=== PATIENT | female | born 1970 | race Caucasian/White ===

== ENCOUNTER 2016-03-19 20:35 | Emergency (ER) | payer OTHER ==
[~2016-03-19] VITALS: Ht 160 cm; Wt 77.6 kg
[2016-03-19 20:51] VITALS: BP 156/83
[2016-03-19] MEDS ORDERED: NAPROXEN 500 MG TABLET PO ONE (22:00)
[2016-03-19] MEDS ORDERED: TRAM-29 PO (22:11)
--- NOTE | 2016-03-19 22:11 | PHYS DOC ---
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 Review of Systems Review of Systems Constitutional: Denies fever or chills [] Musculoskeletal: Left hand contusion Integument: Denies rash or skin lesions [] Neurologic: Denies headache, focal weakness or sensory changes [] Endocrine: Denies polyuria or polydipsia [] Current Medications Current Medications Current Medications Medications (Trade) Dose Ordered Sig/[place] Start Time Stop Time Status Last Admin Dose Admin Naproxen (Naprosyn) 500 mg 1X ONCE 03/19/16 22:00 03/19/16 22:01 DC Allergies Allergies Allergies Coded Allergies Type Severity Reaction Last Updated Verified chlorpromazine Allergy Severe SEIZURE 03/19/16 Yes prochlorperazine Allergy Severe Unknown 03/19/16 Yes promethazine Allergy Severe Unknown 03/19/16 Yes Physical Exam Physical Exam Constitutional: Well developed, well nourished, no acute distress, non-toxic appearance. [] Skin: Warm, dry, no erythema, no rash. [] Back: No tenderness, no CVA tenderness. [] Extremities: Left hand with no obvious deformity, no obvious bruising. Tenderness on palpation of the left pinky and ring finger knuckles. Full range of motion to the left hand including flexion and extension of the fingers. +2 left radial pulse. Adequate ulna radial and medial sensation to the left hand. Cap refill less than 2 seconds and left fingers. Sensation intact. Neurologic: Alert and oriented X 3, normal motor function, normal sensory function, no focal deficits noted. [] Psychologic: Affect normal, judgement normal, mood normal. [] Current Patient Data Vital Signs Vital Signs Date Time Temp Pulse Resp B/P Pulse Ox O2 Delivery O2 Flow Rate FiO2 03/19/16 20:51 98.3 95 18 98 Room Air 98.3 EKG EKG [] Radiology/Procedures Radiology/Procedures [] Course & Med Decision Making Course & Med Decision Making Pertinent Labs and Imaging studies reviewed. (See chart for details) Patient is in the ED with left hand contusion after injury at work. X-ray interpreted by Dr. Hu is negative for any acute findings.Adrian wrap applied to the left hand by the Ed RN, neurovascular exam done by me is normal with cap refill <2 seconds. Ice elevation encouraged. Fu with Ortho in one week. Dragon Disclaimer Dragon Disclaimer This electronic medical record was generated, in whole or in part, using a voice recognition dictation system. Departure Departure Impression: Primary Impression: Contusion of left hand Disposition: HOME, SELF-CARE Condition: STABLE Referrals: AKIN CHOUDHURY (PCP) ANGEL OROZCO MD Please follow-up with the provided orthopedic doctor in one week if pain continues Patient Instructions: Contusion Additional Instructions: You were seen for left hand contusion. Wear the Adrian wrap as needed, ice and elevate the extremity. Take the prescribed medicines as needed. Follow-up with the provided orthopedic doctor your own doctor in one week if pain continues. Scripts Tramadol Hcl (Ultram)50 Mg Tablet1 Tab PO Q6HRS #30 TAB Prov:BETTYNATHALYATTILA LAMBERT 03/19/16 Problem Qualifiers Primary Impression: Contusion of left hand Encounter type: initial encounter Qualified Code: S60.222A - Contusion of left hand, initial encounter RAJINDERATTILA PETRA Mar 19, 2016 22:11
--- NOTE | 2016-03-20 09:30 | RAD ---
Indication pain. Injury. Pain particularly in the fourth and fifth metacarpal area. AP oblique and lateral views of the left hand were obtained. No bony abnormality is seen
== END 2016-03-19 22:19 | disposition home or self-care (01) ==
LOC: ER 20:35
DX: S60.222A Contusion of left hand, initial encounter (principal); Z86.73 Personal history of transient ischemic attack (TIA), and cerebral infarction without residual deficits; Z88.8 Allergy status to other drugs, medicaments and biological substances; W23.0XXA Caught, crushed, jammed, or pinched between moving objects, initial encounter; Y93.89 Activity, other specified; Y92.89 Other specified places as the place of occurrence of the external cause; Y99.8 Other external cause status
CPT/HCPCS: 73130; 99284

== ENCOUNTER 2016-06-15 20:28 | Emergency (ER) | payer OTHER ==
[~2016-06-15] VITALS: Ht 160 cm; Wt 77.1 kg
[~2016-06-15 20:28] MED LIST: TRAM-29 PO
--- NOTE | 2016-06-15 20:41 | PHYS DOC ---
Past Medical History Past Medical History: TIA, Other Additional Past Medical Histor: SKIN CA Past Surgical History: Other Additional Past Surgical Histo: SKIN CANCER REMOVAL Alcohol Use: Rarely Drug Use: None Adult General Chief Complaint Chief Complaint: SHOULDER INJURY HPI HPI Patient is a 46 year old female presents to the emergency department stating that she was at work at [employer] and boxes that she felt a pull in her right shoulder. She states that she has had decreased range of motion since the incident. She states that this happened between 1 and 2:00 this afternoon. Patient states that she is right-hand dominant. She has not taken anything for pain or discomfort. She denies any numbness or tingling down to her lower extremity. 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 Patient with equal sensation to bilateral arms. Review of Systems Review of Systems Constitutional: Denies fever or chills [] Eyes: Denies change in visual acuity, redness, or eye pain [] HENT: Denies nasal congestion or sore throat [] Respiratory: Denies cough or shortness of breath [] Cardiovascular: No additional information not addressed in HPI [] GI: Denies abdominal pain, nausea, vomiting, bloody stools or diarrhea [] : Denies dysuria or hematuria [] Musculoskeletal: Denies back pain. C/o right shoulder pain Integument: Denies rash or skin lesions [] Neurologic: Denies headache, focal weakness or sensory changes [] Current Medications Current Medications Current Medications Medications (Trade) Dose Ordered Sig/[facility] Start Time Stop Time Status Last Admin Dose Admin Cyclobenzaprine HCl (Flexeril) 10 mg 1X ONCE 06/15/16 21:00 06/15/16 21:01 DC 06/15/16 21:12 10 MG Ibuprofen (Motrin) 800 mg 1X ONCE 06/15/16 21:00 06/15/16 21:01 DC 06/15/16 21:12 800 MG Allergies Allergies Allergies Coded Allergies Type Severity Reaction Last Updated Verified chlorpromazine Allergy Severe SEIZURE 03/19/16 Yes prochlorperazine Allergy Severe Unknown 03/19/16 Yes promethazine Allergy Severe Unknown 03/19/16 Yes Physical Exam Physical Exam Constitutional: Well developed, well nourished, no acute distress, non-toxic appearance. [] HENT: Normocephalic, atraumatic, bilateral external ears normal, oropharynx moist, no oral exudates, nose normal. [] Eyes: PERRLA, EOMI, conjunctiva normal, no discharge. [] Neck: Normal range of motion, no tenderness, supple, no stridor. [] Cardiovascular:Heart rate regular rhythm, no murmur [] Lungs & Thorax: Bilateral breath sounds clear to auscultation []] Skin: Warm, dry, no erythema, no rash. [] Back: No tenderness Extremities: Right shoulder tenderness, no cyanosis, no clubbing, ROM intact, no edema. Patient with decreased range of motion with the right shoulder. Patient was noted to have right database management specialist slightly less in the left. Patient with decreased range of motion to the right shoulder. Her tenderness noted over the clavicle area. Neurologic: Alert and oriented X 3, normal motor function, normal sensory function, no focal deficits noted. [] Psychologic: Affect normal, judgement normal, mood normal. [] Current Patient Data Vital Signs Vital Signs Date Time Temp Pulse Resp B/P Pulse Ox O2 Delivery O2 Flow Rate FiO2 06/15/16 20:46 97.8 80 18 99 Room Air 97.8 EKG EKG [] Radiology/Procedures Radiology/Procedures [] Course & Med Decision Making Course & Med Decision Making Pertinent Labs and Imaging studies reviewed. (See chart for details) X-rays were negative for any bony abnormalities per Dr. Lundy. Patient will be placed in a sling. Recommended ibuprofen 800 mg every 8 hours with food stop taking few develop an upset stomach. Also recommended ice packs on 20 minutes off 20 minutes several times a day. Also recommended patient to take her arm out of the sling approximately 4 times a day and do shoulder exercises to prevent frozen shoulder. Patient will be provided with orthopedic name and number to follow up with. Signs symptoms to return back to emergency department provided. Patient agrees with discharge instructions treatment regimens and follow-up recommendations. [] Dragon Disclaimer Dragon Disclaimer This electronic medical record was generated, in whole or in part, using a voice recognition dictation system. Departure Departure Impression: Primary Impression: Right shoulder pain Disposition: HOME, SELF-CARE Condition: STABLE Referrals: AKIN CHOUDHURY (PCP) BRIAN RUCKER MD Patient Instructions: Arm Sling Use-Brief, Shoulder Pain, [id number] Additional Instructions: Your x-rays were negative for any bone abnormality. Ibuprofen 800 mg every 8 hours with food stop taking few develop upset stomach. Ice packs on 20 minutes off 20 minutes several times a day. Wear the sling whenever you are up ambulating. Take the arm out of the sling 4 times a day and do wall exercises as you were shown here in the emergency department. Follow-up with orthopedic in the next week. Return back to emergency department for signs and symptoms of become worse. You may return to work with left-handed work only. No lifting anything with the right arm. GRICELDA COON SURGERY NURSE Jun 15, 2016 20:41
[2016-06-15 20:46] VITALS: BP 154/83
[2016-06-15] MEDS ORDERED: CYCLOBENZAPRINE 10 MG TABLET. PO ONE (21:00)
[2016-06-15] MEDS ORDERED: IBUPROFEN 800 MG TABLET. PO ONE (21:00)
--- NOTE | 2016-06-16 08:20 | RAD ---
SHOULDER 2+V RIGHT Clinical Indication: pain and injury Comparison: None. Technique: Internal and external rotational and Y scapular views of the right shoulder are obtained. Findings: No acute fracture or dislocation is seen. Glenohumeral and acromio clavicular joints are maintained. Visualized ribs are intact. Visualized lung is clear. Overlying soft tissues demonstrate no acute finding. IMPRESSION: No acute osseous injury.
== END 2016-06-15 21:40 | disposition home or self-care (01) ==
LOC: ER 20:28
DX: M25.511 Pain in right shoulder (principal); Z88.8 Allergy status to other drugs, medicaments and biological substances; Z86.73 Personal history of transient ischemic attack (TIA), and cerebral infarction without residual deficits; X58.XXXA Exposure to other specified factors, initial encounter; Y93.89 Activity, other specified; Y92.69 Other specified industrial and construction area as the place of occurrence of the external cause; Y99.0 Civilian activity done for income or pay
CPT/HCPCS: 73030; 99284

== ENCOUNTER 2016-10-31 18:14 | Emergency (ER) | payer BC, OTHER ==
[~2016-10-31] VITALS: Ht 160 cm; Wt 76.2 kg
[~2016-10-31 18:14] MED LIST changes: -TRAM-29 PO; +TRAM-48 PO
--- NOTE | 2016-10-31 18:41 | EKG ---
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
[2016-10-31] MEDS ORDERED: CYCLOBENZAPRINE 10 MG TABLET. PO ONE (18:45)
[2016-10-31] MEDS ORDERED: HYDROcodone/APAP 5/325MG 1 TAB TABLET PO ONE (18:45)
[2016-10-31] MEDS ORDERED: HYDR-971 PO (19:19)
[2016-10-31] MEDS ORDERED: CYCL5TAB PO (19:19)
--- NOTE | 2016-10-31 19:19 | PHYS DOC ---
Past Medical History Past Medical History: Cancer, TIA, Other Additional Past Medical Histor: SKIN CA Past Surgical History: Cholecystectomy, , Other Additional Past Surgical Histo: SKIN CANCER REMOVAL, TMJ, L ARM Alcohol Use: Rarely Drug Use: None Adult General Chief Complaint Chief Complaint: SHORTNESS OF BREATH HPI HPI Patient is a 46 year old female who presents with right sided back pain. The patient states she played frisbee golf this afternoon & had onset of right sided upper back pain. She doesn't remember a specific injury. She reports pain worse with deep breathing. Denies cough, chest pain, nausea, vomiting, diaphoresis, extremity numbness/weakness. Didn't take any meds at home for this. She denies diabetes, hypertension, CAD. She is a current every day smoker. Review of Systems Review of Systems Constitutional: Denies fever or chills Eyes: Denies change in visual acuity HENT: Denies nasal congestion or sore throat Respiratory: Denies cough or shortness of breath Cardiovascular: Denies chest pain or edema GI: Denies abdominal pain, nausea, vomiting Musculoskeletal: Reports back pain. Integument: Denies rash Neurologic: Denies headache, focal weakness or sensory changes Current Medications Current Medications Current Medications Medications (Trade) Dose Ordered Sig/[place] Start Time Stop Time Status Last Admin Dose Admin Acetaminophen/ Hydrocodone Bitart (Lortab 5/325) 2 tab 1X ONCE 10/31/16 18:45 10/31/16 18:46 DC 10/31/16 18:49 2 TAB Cyclobenzaprine HCl (Flexeril) 10 mg 1X ONCE 10/31/16 18:45 10/31/16 18:46 DC 10/31/16 18:49 10 MG Allergies Allergies Allergies Coded Allergies Type Severity Reaction Last Updated Verified chlorpromazine Allergy Severe SEIZURE 03/19/16 Yes prochlorperazine Allergy Severe Unknown 03/19/16 Yes promethazine Allergy Severe Unknown 03/19/16 Yes Physical Exam Physical Exam Constitutional: Well developed, well nourished, no acute distress, non-toxic appearance. HENT: Normocephalic, atraumatic, bilateral external ears normal, oropharynx moist, nose normal. Eyes: conjunctiva normal, no discharge. Neck: supple, no stridor. Cardiovascular: RRR, no murmurs, no edema. Lungs & Thorax: LCTAB, no wheezing, no respiratory distress. Abdomen: soft, nontender, nondistended. Skin: Warm, dry, no erythema, no rash. Back: reproducible tenderness with palpation over trapezius on the right, no spinal tenderness. Extremities: No tenderness, no edema. no calf tenderness or swelling. Neurologic: Alert and oriented X 3, symmetric strength/sensation to upper & lower extremities, no focal deficits noted. Psychologic: Affect normal, judgement normal, mood normal. Current Patient Data Vital Signs Vital Signs Date Time Temp Pulse Resp B/P (MAP) Pulse Ox O2 Delivery O2 Flow Rate FiO2 10/31/16 19:30 75 20 171/81 (111) 97 Room Air 10/31/16 18:30 98.1 98.1 Lab Values Laboratory Tests Test 10/31/16 18:37 POC Hemoglobin 14.6 g/dL (12-15) POC Hematocrit 43 % (36-40) H POC Sodium 139 mmol/L (135-145) POC Potassium 4.0 mmol/L (3.5-5.0) POC Chloride 105 mmol/L (98-110) POC Total CO2 21 mmol/L (23-32) L Anion Gap 18 mmol/L (6-14) H POC Blood Urea Nitrogen 10 mg/dL (8-26) POC Creatinine 0.7 mg/dL (0.5-1.4) Glucose Level 97 mg/dL (70-99) POC Ionized Calcium (Orin) 1.14 mmol/L (1.13-1.32) POC Troponin I 0.00 ng/ml (<0.08) Laboratory Tests 10/31/16 18:37 EKG EKG interpreted by me: NSR rate 79, no acute ST/T wave changes, normal intervals, no ectopy.[] Radiology/Procedures Radiology/Procedures chest x ray 2 views: interpreted by me: no cardiomegaly, no infiltrate, no pneumothorax, no obvious rib fracture.[] Course & Med Decision Making Course & Med Decision Making Pertinent Labs and Imaging studies reviewed. (See chart for details) The patient presents with back pain. No specific history of injury & she plays frisbee golf several times per week, so obtained labs, EKG, CXR to rule out other cause of her pain. PERC is 0. She has unremarkable workup here & feels better after flexeril & norco. Recommend rest, scheduled ibuprofen, ice/heat, gave prescriptions for norco & flexeril. No drinking alcohol or driving while taking meds. Follow up with PCP in 2-3 days if not improving. Come back for severe chest pain or shortness of breath, or any otherwise worsening condition. Discharged home in stable condition. [] Dragon Disclaimer Dragon Disclaimer This electronic medical record was generated, in whole or in part, using a voice recognition dictation system. Departure Departure Impression: Primary Impression: Muscle strain of right scapular region Disposition: 01 HOME, SELF-CARE Condition: STABLE Referrals: AKIN CHOUDHURY (PCP) Patient Instructions: Muscle Strain, [id number] Additional Instructions: You were seen in the emergency department today for back pain. Tests here did not show a serious cause of symptoms. Please rest, apply ice or heat, take ibuprofen 600 mg every 8 hours, use flexeril for muscle spasm & norco for severe pain. No drinking alcohol or driving while taking this medication. Follow up with primary care doctor if not improving in 2-3 days. Come back for severe shortness of breath or chest pain, numbness or weakness in arms or legs, any otherwise worsening condition. Scripts Hydrocodone/Apap 5-325 (NORCO 5-325 TABLET) 1 Each Tablet 1 TAB PO PRN Q6HRS Y for PAIN, #10 TAB 0 Refills Prov: DREW LIEBERMAN MD 10/31/16 Cyclobenzaprine Hcl (CYCLOBENZAPRINE HCL) 5 Mg Tablet 1 TAB PO TID Y for MUSCLE SPASMS, #10 TAB Prov: DREW LIEBERMAN MD 10/31/16 Problem Qualifiers Primary Impression: Muscle strain of right scapular region Encounter type: initial encounter Qualified Codes: S46.911A - Strain of unspecified muscle, fascia and tendon at shoulder and upper arm level, right arm , initial encounter DREW LIEBERMAN MD Oct 31, 2016 19:19
[2016-10-31 19:30] VITALS: BP 171/81
--- NOTE | 2016-11-01 08:03 | RAD ---
Exam performed: 2 views of the chest. Indication: shortness of air today Date of Service:10/31/2016 8:29 PM . Comparison : 10/17/09 Findings: PA and lateral radiographs of the chest reveal a normal cardiomediastinal contour. The lungs are clear. No pleural fluid is seen. The visualized osseous structures are unremarkable. Impression: Radiographically normal chest.
== END 2016-10-31 19:30 | disposition home or self-care (01) ==
LOC: ER 18:14
DX: S46.811A Strain of other muscles, fascia and tendons at shoulder and upper arm level, right arm, initial encounter (principal); Z88.8 Allergy status to other drugs, medicaments and biological substances; Z86.73 Personal history of transient ischemic attack (TIA), and cerebral infarction without residual deficits; X58.XXXA Exposure to other specified factors, initial encounter; Y93.89 Activity, other specified; Y92.89 Other specified places as the place of occurrence of the external cause; Y99.8 Other external cause status
CPT/HCPCS: 36415; 71020; 80047; 84484; 93005; 99284-25

== ENCOUNTER 2016-11-27 17:43 | Emergency (ER) | payer BC ==
[~2016-11-27] VITALS: Ht 160 cm; Wt 77.1 kg
[~2016-11-27 17:43] MED LIST changes: +CYCL5TAB PO; +HYDR-971 PO
[2016-11-27] MEDS ORDERED: ONDANSETRON PF 4 MG/2 ML VIAL. IV ONE (18:30)
[2016-11-27] MEDS ORDERED: diphenhydrAMINE 50 MG/ML VIAL IVP ONE (18:30)
[2016-11-27] MEDS ORDERED: HYDROmorphone 2 MG/ML VIAL IV ONE (18:30)
[2016-11-27 18:34] LABS: BASO # 0.1 x10^3/uL (0.0-0.2); BASO % 1 % (0-3); EOS % 3 % (0-3); HEMOGLOBIN 15.4 g/dL (12.0-15.5); LYMPH # 3.2 x10^3/uL (1.0-4.8); LYMPH % 41 % (24-48); MEAN CORPUSCULAR HEMOGLOBIN 31 pg (25-35); MEAN CORPUSCULAR HGB CONC 34 g/dL (31-37); MEAN CORPUSCULAR VOLUME 94 fL (79-100); MONO % 6 % (0-9); NEUT % 49 % (31-73); PLATELET COUNT 186 x10^3/uL (140-400); RED BLOOD COUNT 4.91 x10^6/uL (3.50-5.40); RED CELL DISTRIBUTION WIDTH 13.3 % (11.5-14.5); WHITE BLOOD COUNT 7.8 x10^3/uL (4.0-11.0)
[2016-11-27 18:53] LABS: CREATININE 0.8 mg/dL (0.6-1.0); GFR 76.6; POTASSIUM 4.5 mmol/L (3.5-5.1)
[2016-11-27 18:58] LABS: ALBUMIN 3.9 g/dL (3.4-5.0); ALBUMIN/GLOBULIN RATIO 1.2 (1.0-1.7); TOTAL BILIRUBIN 0.1 mg/dL (0.2-1.0); TOTAL PROTEIN 7.1 g/dL (6.4-8.2)
[2016-11-27 19:59] LABS: BILIRUBIN,URINE NEGATIVE (NEG); GLUCOSE,URINE NEGATIVE (NEG); NITRITE,URINE NEGATIVE (NEG); PROTEIN,URINE NEGATIVE (NEG-TRACE); UROBILINOGEN,URINE 0.2 mg/dL (0.2 mg/dL)
[2016-11-27 20:04] LABS: BACTERIA,URINE FEW /HPF (0-FEW); RBC,URINE 0 /HPF (0-2); SQUAMOUS EPITHELIAL CELL,UR MOD /LPF; WBC,URINE 0 /HPF (0-4)
[2016-11-27] MEDS ORDERED: amLODIPine BESYLATE 5 MG TABLET PO ONE (20:15)
[2016-11-27] MEDS ORDERED: TRAM-48 PO (20:48)
[2016-11-27] MEDS ORDERED: AMLO10TA4 PO (20:48)
--- NOTE | 2016-11-27 20:48 | PHYS DOC ---
Past Medical History Past Medical History: Cancer, TIA, Other Additional Past Medical Histor: SKIN CA Past Surgical History: Cholecystectomy, , Other Additional Past Surgical Histo: SKIN CANCER REMOVAL, TMJ, L ARM Alcohol Use: Rarely Drug Use: None Adult General Chief Complaint Chief Complaint: HYPERTENSION HPI HPI Patient is a 46 year old female with history significant for skin cancer and no other medical problems presents to the ER today secondary to headache and hypertension. Patient reports she's had headaches in the past however they've avoided related with her blood pressure being elevated. Patient reports that she has been seen her primary care physician over the last couple weeks secondary to her elevated blood pressure and headache. Patient reports that she was instructed to get a blood pressure monitor and keep a diary of her blood pressure. Patient reports that her blood pressure been elevated for the last 2 weeks however tonight she had a diastolic of 149 and a systolic of 174. Patient reports that she just recently saw her doctor and she has diastolic blood pressure of 110 but has not been started on any antihypertensives because it was believed that her elevated blood pressure was secondary to her headache. Patient reports that throughout the course of the last couple weeks when she's had her blood pressure monitored at home her blood pressure has been persistently elevated even when her headache had improved. Patient reports today her headache a bad again so she called her primary care doctor and he instructed her to come to the ER for evaluation of her headache and her elevated blood pressure. Patient has no confirmed diagnosis of hypertension, diabetes liver lung or kidney problems. Patient has had a cholecystectomy in 2 C -sections in the past. Patient reports she does smoke and does not drink or do drugs. Patient portion allergic to Compazine Phenergan and Thorazine. Patient denies any double vision blurred vision weakness or upper or lower extremities, chest pain shortness of breath, slurring her speech, lower extremity edema, abdominal pain,. Patient denies any fevers shakes chills. Patient has any nuchal rigidity. Patient denies any head trauma. Patient reports that she was here approximately 1-2 months ago and had a normal CT scan at that time. Review of systems Constitutional: Denies fever or chills Eyes: Denies change in visual acuity, redness, or eye pain All other review systems are negative except as documented in the history of present illness portion. Physical exam Constitutional: Well developed, well nourished, no acute distress, non-toxic appearance. HENT: Normocephalic, atraumatic, bilateral external ears normal, oropharynx moist, no oral exudates, nose normal. Normal funduscopic exam. Eyes: conjunctiva normal, no discharge. Neck: Normal range of motion, no tenderness, supple, no stridor. Cardiovascular:Heart rate regular rhythm, Lungs & Thorax: Bilateral breath sounds clear to auscultation Abdomen: Bowel sounds normal, soft, no tenderness, no masses, no pulsatile masses. Skin: Warm, dry, Back: No tenderness, Extremities: No tenderness, no cyanosis, Neurologic: Alert and oriented X 3, normal motor function, normal sensory function, no focal deficits noted. Psychologic: Affect normal, judgement normal, mood normal. This is a 46-year-old female who presents to the ER today secondary to headache and hypertension. While in the ER the patient was treated for her migraine to see if her improved headache with lower blood pressure. Patient was given a dose of Benadryl and Dilaudid as well as IV fluids upper with her headache. Patient had basic labs drawn which were all within normal limits. Patient was reevaluated after headache improved and her blood pressure was still elevated. After long discussion with the patient the decision was made to initiate her on antihypertensive medication until she is able see her primary care physician in one to 2 weeks which is ready scheduled. Patient be given a dose of Norvasc 10 mg by mouth here and will be discharged home with a prescription for the same but with strict instructions to follow-up within 1-2 weeks for that her blood pressure to be reevaluated. Patient was instructed to return the ER if her headache worsens or if she has any further problems her blood pressure management. Patient was instructed to contact her primary care physician for blood pressure is elevated and she has no significant other symptoms that are concerning. Patient does not present with any signs of end organ damage. Patient does not present with any evidence of acute intracranial pathology. Patient be discharged home with Ultram and Norvasc. Current Medications Current Medications Current Medications Medications (Trade) Dose Ordered Sig/[place] Start Time Stop Time Status Last Admin Dose Admin Amlodipine Besylate (Norvasc) 10 mg 1X ONCE 11/27/16 20:15 11/27/16 20:17 DC 11/27/16 20:25 10 MG Diphenhydramine HCl (Benadryl) 25 mg 1X ONCE 11/27/16 18:30 11/27/16 18:31 DC 11/27/16 18:50 25 MG Hydromorphone HCl (Dilaudid) 1 mg 1X ONCE 11/27/16 18:30 11/27/16 18:31 DC 11/27/16 18:50 1 MG Ondansetron HCl (Zofran) 4 mg 1X ONCE 11/27/16 18:30 11/27/16 18:31 DC 11/27/16 18:49 4 MG Allergies Allergies Allergies Coded Allergies Type Severity Reaction Last Updated Verified chlorpromazine Allergy Severe SEIZURE 03/19/16 Yes prochlorperazine Allergy Severe Unknown 03/19/16 Yes promethazine Allergy Severe Unknown 03/19/16 Yes Physical Exam Physical Exam Constitutional: Well developed, well nourished, no acute distress, non-toxic appearance. [] HENT: Normocephalic, atraumatic, bilateral external ears normal, oropharynx moist, no oral exudates, nose normal. [] Eyes: PERRLA, EOMI, conjunctiva normal, no discharge. [] Neck: Normal range of motion, no tenderness, supple, no stridor. [] Cardiovascular:Heart rate regular rhythm, no murmur [] Lungs & Thorax: Bilateral breath sounds clear to auscultation [] Abdomen: Bowel sounds normal, soft, no tenderness, no masses, no pulsatile masses. [] Skin: Warm, dry, no erythema, no rash. [] Back: No tenderness, no CVA tenderness. [] Extremities: No tenderness, no cyanosis, no clubbing, ROM intact, no edema. [] Neurologic: Alert and oriented X 3, normal motor function, normal sensory function, no focal deficits noted. [] Psychologic: Affect normal, judgement normal, mood normal. [] Current Patient Data Vital Signs Vital Signs Date Time Temp Pulse Resp B/P (MAP) Pulse Ox O2 Delivery O2 Flow Rate FiO2 11/27/16 20:25 78 161/83 11/27/16 19:54 16 98 Room Air 11/27/16 17:56 98.2 98.2 Lab Values Laboratory Tests Test 11/27/16 17:56 11/27/16 19:50 White Blood Count 7.8 x10^3/uL (4.0-11.0) Red Blood Count 4.91 x10^6/uL (3.50-5.40) Hemoglobin 15.4 g/dL (12.0-15.5) Hematocrit 46.0 % (36.0-47.0) Mean Corpuscular Volume 94 fL (79-100) Mean Corpuscular Hemoglobin 31 pg (25-35) Mean Corpuscular Hemoglobin Concent 34 g/dL (31-37) Red Cell Distribution Width 13.3 % (11.5-14.5) Platelet Count 186 x10^3/uL (140-400) Neutrophils (%) (Auto) 49 % (31-73) Lymphocytes (%) (Auto) 41 % (24-48) Monocytes (%) (Auto) 6 % (0-9) Eosinophils (%) (Auto) 3 % (0-3) Basophils (%) (Auto) 1 % (0-3) Neutrophils # (Auto) 3.8 x10^3uL (1.8-7.7) Lymphocytes # (Auto) 3.2 x10^3/uL (1.0-4.8) Monocytes # (Auto) 0.5 x10^3/uL (0.0-1.1) Eosinophils # (Auto) 0.2 x10^3/uL (0.0-0.7) Basophils # (Auto) 0.1 x10^3/uL (0.0-0.2) Sodium Level 141 mmol/L (136-145) Potassium Level 4.5 mmol/L (3.5-5.1) Chloride Level 104 mmol/L (98-107) Carbon Dioxide Level 29 mmol/L (21-32) Anion Gap 8 (6-14) Blood Urea Nitrogen 11 mg/dL (7-20) Creatinine 0.8 mg/dL (0.6-1.0) Estimated GFR (Cockcroft-Gault) 76.6 BUN/Creatinine Ratio 14 (6-20) Glucose Level 92 mg/dL (70-99) Calcium Level 9.0 mg/dL (8.5-10.1) Total Bilirubin 0.1 mg/dL (0.2-1.0) L Aspartate Amino Transferase (AST) 19 U/L (15-37) Alanine Aminotransferase (ALT) 34 U/L (14-59) Alkaline Phosphatase 106 U/L (46-116) Troponin I Quantitative < 0.017 ng/mL (0.000-0.055) Total Protein 7.1 g/dL (6.4-8.2) Albumin 3.9 g/dL (3.4-5.0) Albumin/Globulin Ratio 1.2 (1.0-1.7) Urine Collection Type Unknown Urine Color Yellow Urine Clarity Cloudy Urine pH 7.0 Urine Specific [place] <=1.005 Urine Protein Negative mg/dL (NEG-TRACE) Urine Glucose (UA) Negative mg/dL (NEG) Urine Ketones (Stick) Negative mg/dL (NEG) Urine Blood Negative (NEG) Urine Nitrite Negative (NEG) Urine Bilirubin Negative (NEG) Urine Urobilinogen Dipstick 0.2 mg/dL (0.2 mg/dL) Urine Leukocyte Esterase Negative (NEG) Urine RBC 0 /HPF (0-2) Urine WBC 0 /HPF (0-4) Urine Squamous Epithelial Cells Mod /LPF Urine Bacteria Few /HPF (0-FEW) Laboratory Tests 11/27/16 17:56 Laboratory Tests 11/27/16 17:56 EKG EKG [] Radiology/Procedures Radiology/Procedures [] Course & Med Decision Making Course & Med Decision Making Pertinent Labs and Imaging studies reviewed. (See chart for details) [] Dragon Disclaimer Dragon Disclaimer This electronic medical record was generated, in whole or in part, using a voice recognition dictation system. Departure Departure Impression: Primary Impression: Headache Additional Impression: Hypertension Disposition: 01 HOME, SELF-CARE Condition: IMPROVED Referrals: AKIN CHOUDHURY PER DIEM CLERK (PCP) Patient Instructions: General Headache Without Cause, Hypertension Scripts Tramadol Hcl (ULTRAM) 50 Mg Tablet 1 TAB PO Q6HRS, #14 TAB Prov: SUSY SCHULZ MD 11/27/16 Amlodipine Besylate (NORVASC) 10 Mg Tablet 10 MG PO DAILY, #14 TAB Prov: SUSY SCHULZ MD 11/27/16 Problem Qualifiers SUSY SCHULZ MD Nov 27, 2016 20:48
[2016-11-27 20:54] VITALS: BP 142/76
--- NOTE | 2016-11-28 07:40 | RAD ---
EXAM: Chest 2 views. HISTORY: Hypertension, headache. COMPARISON: 10/31/2016. FINDINGS: Frontal and lateral views of the chest are obtained. There are no confluent infiltrates. There is no pneumothorax or pleural effusion. The heart is not enlarged. Cholecystectomy clips are noted. IMPRESSION: 1. No confluent infiltrates.
--- NOTE | 2016-11-28 07:49 | EKG ---
[facility] [address] [place] [address] Test Date: 2016-11-27 Test Time: 17:55:47 Pat Name: NATHANIEL LANDEROS Department: Room: Gender: F [employer] Field Techn[employer]: : 1970 Requested By: SUSY SCHULZ Order Number: [id number] Reading MD: Measurements Intervals [place] Rate: 83 P: 52 [place]: 130 QRS: 88 QRSD: 114 T: 12 QT: 402 QTc: 479 Interpretive Statements SINUS RHYTHM QRS(T) CONTOUR ABNORMALITY CONSIDER INFERIOR MYOCARDIAL DAMAGE PROLONGED QT RI6.01 Unconfirmed report No previous ECG available for comparison
== END 2016-11-27 20:55 | disposition home or self-care (01) ==
LOC: ER 17:43
DX: I10 Essential (primary) hypertension (principal); Z86.73 Personal history of transient ischemic attack (TIA), and cerebral infarction without residual deficits; Z90.49 Acquired absence of other specified parts of digestive tract; Z88.8 Allergy status to other drugs, medicaments and biological substances
CPT/HCPCS: 36415; 71020; 80053; 81001; 84484; 85025; 93005; 96374; 96375; 99285; J1170; J1200; J2405

== ENCOUNTER 2017-06-28 16:56 | Emergency (ER) | payer BC ==
[2017-06-28] MEDS: traMADol 50 MG TABLET PO (17:34)
== END 2017-06-28 17:53 | disposition home or self-care (01) ==
LOC: ER 16:56
DX: S89.92XA Unspecified injury of left lower leg, initial encounter (principal); I10 Essential (primary) hypertension; Z88.8 Allergy status to other drugs, medicaments and biological substances; Z86.73 Personal history of transient ischemic attack (TIA), and cerebral infarction without residual deficits; Z90.49 Acquired absence of other specified parts of digestive tract; W01.0XXA Fall on same level from slipping, tripping and stumbling without subsequent striking against object, initial encounter; Y93.01 Activity, walking, marching and hiking; Y92.89 Other specified places as the place of occurrence of the external cause; Y99.8 Other external cause status
CPT/HCPCS: 73562; 99284

== ENCOUNTER 2018-08-06 22:19 | Emergency (ER) | payer BC ==
[~2018-08-06] VITALS: Ht 160 cm; Wt 83.0 kg
[~2018-08-06 22:19] MED LIST changes: +AMLO10TA4 PO; +HYDR-3164 PO; -HYDR-971 PO; +TRAM50TA PO
[2018-08-06 22:30] VITALS: BP 133/65
--- NOTE | 2018-08-06 22:46 | PHYS DOC ---
Past Medical History Past Medical History: Cancer, Hypertension, TIA, Other Additional Past Medical Histor: SKIN CA Past Surgical History: Cholecystectomy, , Other Additional Past Surgical Histo: SKIN CANCER REMOVAL, TMJ, L ARM Smoking: Cigarettes, 1 Pack Per Day Alcohol Use: Rarely Drug Use: None Adult General Chief Complaint Chief Complaint: HAND PROBLEM HPI HPI Patient is a 48 year old female presents after having a smoker grill top crush on her hand around 9 PM. Patient complains of swelling to her left hand, and wrist. Has tried ice on the hand prior to arrival denies any medications prior to arrival. Her pain is 9 out of 10 and states it is throbbing, and sharp. Review of Systems Review of Systems Constitutional: Denies fever or chills [] Eyes: Denies change in visual acuity, redness, or eye pain [] HENT: Denies nasal congestion or sore throat [] Respiratory: Denies cough or shortness of breath [] Cardiovascular: No additional information not addressed in HPI [] GI: Denies abdominal pain, nausea, vomiting, bloody stools or diarrhea [] : Denies dysuria or hematuria [] Musculoskeletal: Denies back pain or joint pain with exception of L hand and wrist. Integument: Denies rash or skin lesions [] Neurologic: Denies headache, focal weakness or sensory changes [] Endocrine: Denies polyuria or polydipsia [] Complete systems were reviewed and found to be within normal limits, except as documented in this note. Current Medications Current Medications Current Medications Medications (Trade) Dose Ordered Sig/[facility] Start Time Stop Time Status Last Admin Dose Admin Ketorolac Tromethamine (Toradol 30mg Vial) 30 mg 1X ONCE 08/06/18 23:00 08/06/18 23:01 DC 08/06/18 23:09 30 MG Allergies Allergies Allergies Coded Allergies Type Severity Reaction Last Updated Verified chlorpromazine Allergy Severe SEIZURE 03/19/16 Yes prochlorperazine Allergy Severe Unknown 03/19/16 Yes promethazine Allergy Severe Unknown 03/19/16 Yes Physical Exam Physical Exam Constitutional: Well developed, well nourished, no acute distress, non-toxic appearance. [] HENT: Normocephalic, atraumatic, bilateral external ears normal, oropharynx moist, no oral exudates, nose normal. [] Eyes: PERRLA, EOMI, conjunctiva normal, no discharge. [] Neck: Normal range of motion, no tenderness, supple, no stridor. [] Cardiovascular:Heart rate regular rhythm, no murmur [] Lungs & Thorax: Bilateral breath sounds clear to auscultation [] Abdomen: Bowel sounds normal, soft, no tenderness, no masses, no pulsatile masses. [] Skin: Warm, dry, no erythema, no rash. [] Back: No tenderness, no CVA tenderness. [] Extremities: Tenderness to her L wrist and hand, ROM reduced, has edema. [] Neurologic: Alert and oriented X 3, normal motor function, normal sensory function, no focal deficits noted. [] Psychologic: Affect normal, judgement normal, mood normal. [] Current Patient Data Vital Signs Vital Signs Date Time Temp Pulse Resp B/P (MAP) Pulse Ox O2 Delivery O2 Flow Rate FiO2 08/06/18 22:30 97.6 96 16 133/65 (87) 95 Room Air 97.6 EKG EKG [] Radiology/Procedures Radiology/Procedures []PATIENT: NATHANIEL LANDEROS LACCOUNT: [id number]#: [id number] : 1970 LOCATION: ER AGE: 48 SEX: F EXAM STATUS: REG ER ORD. PHYSICIAN: MARCEL JIMENES APRN REASON: Injury, hand got cought in the grill door PROCEDURE: HAND LEFT 3V EXAM: Left hand and wrist, 3 views. HISTORY: Blunt trauma. COMPARISON: None. FINDINGS: 3 views of the left hand and wrist are obtained. There is internal fixation of a healed ulnar diaphyseal fracture, partially included on the [id number]. There is no acute fracture, dislocation or subluxation. No foreign body is seen. IMPRESSION: No acute osseous finding. Electronically signed by: Latanya Diaz MD (08/06/2018 11:04 PM) [facility] Course & Med Decision Making Course & Med Decision Making Pertinent Labs and Imaging studies reviewed. (See chart for details) Will get x-ray and give pain medication. Patient refused Toradol stating that Dilaudid or [place] is what works for her. Xray is negative. Will place in splint and then will d/c home to follow up with Orthopedics as needed. Dragon Disclaimer Dragon Disclaimer This electronic medical record was generated, in whole or in part, using a voice recognition dictation system. Departure Departure Impression: Primary Impression: Hand pain, left Disposition: 01 HOME, SELF-CARE Condition: STABLE Referrals: LAURENT PARRA MD (PCP) BRIANA GUY MD Patient Instructions: Hand Contusion Additional Instructions: Please follow up with your primary care doctor if injury persists or follow up with Dr. Guy. Return to ED as needed. Take ibuprofen and Tylenol for pain as the label recommends. MACREL JIMENES APRN Aug 06, 2018 22:46
[2018-08-06] MEDS ORDERED: KETOROLAC 30 MG/ML VIAL. IM ONE (23:00)
--- NOTE | 2018-08-06 23:07 | RAD ---
EXAM: Left hand and wrist, 3 views. HISTORY: Blunt trauma. COMPARISON: None. FINDINGS: 3 views of the left hand and wrist are obtained. There is internal fixation of a healed ulnar diaphyseal fracture, partially included on the [id number]. There is no acute fracture, dislocation or subluxation. No foreign body is seen. IMPRESSION: No acute osseous finding. Electronically signed by: Latanya Diaz MD (08/06/2018 11:04 PM) [facility]
--- NOTE | 2018-08-06 23:07 | RAD ---
EXAM: Left hand and wrist, 3 views. HISTORY: Blunt trauma. COMPARISON: None. FINDINGS: 3 views of the left hand and wrist are obtained. There is internal fixation of a healed ulnar diaphyseal fracture, partially included on the [id number]. There is no acute fracture, dislocation or subluxation. No foreign body is seen. IMPRESSION: No acute osseous finding. Electronically signed by: Latanya Diaz MD (08/06/2018 11:04 PM) [facility]
== END 2018-08-06 23:47 | disposition home or self-care (01) ==
LOC: ER 22:19
DX: M25.532 Pain in left wrist (principal); F17.210 Nicotine dependence, cigarettes, uncomplicated; I10 Essential (primary) hypertension; Z86.73 Personal history of transient ischemic attack (TIA), and cerebral infarction without residual deficits; Z90.49 Acquired absence of other specified parts of digestive tract; Z98.890 Other specified postprocedural states; Z88.8 Allergy status to other drugs, medicaments and biological substances
CPT/HCPCS: 29125; 73110; 73130; 96372; 99284; J1885

== ENCOUNTER 2019-01-17 20:04 | Emergency (ER) | payer BC ==
[~2019-01-17] VITALS: Ht 160 cm; Wt 81.6 kg
--- NOTE | 2019-01-17 21:56 | RAD ---
Right lower extremity venous Doppler ultrasound History: Right sided leg swelling. Comparison: None. Procedure: Color flow Doppler, Doppler spectral analysis, and 2D images are obtained with and without compression in the area of the common femoral vein, superficial femoral vein - femoral vein junction, main femoral vein (superficial femoral vein) and popliteal vein. Veins of the proximal calf are also imaged. Findings: There is normal color flow, augmentation, and compressibility of all visualized vein segments. No evidence of deep venous thrombus is present. There is mild right lower leg subcutaneous edema. No abnormal right inguinal lymph nodes are identified. IMPRESSION: No evidence of right lower extremity deep venous thrombosis. Electronically signed by: Sarkis Wagner MD (01/17/2019 9:53 PM) [facility]
[2019-01-17 22:19] VITALS: BP 124/80
--- NOTE | 2019-01-17 23:03 | PHYS DOC ---
Past Medical History Past Medical History: Hypertension Additional Past Medical Histor: SKIN CA Past Surgical History: Cholecystectomy Additional Past Surgical Histo: Metal pins in jaw & rods L forearm, skin CA surgery 2016, RIGHT FOOT Alcohol Use: Rarely Drug Use: None Adult General Chief Complaint Chief Complaint: LOWER EXTREMITY SWELLING HPI HPI Patient is a 48 year old [place] female presents with right flank pain. Patient also reports nausea and chills. Patient treated at outside clinic 2 days ago for lower urinary tract infection. She was placed on a daily antibiotic and has completed 2 doses. Flank pain started this morning. Denies history of kidney stones. Denies fever, abdominal pain. No other acute symptoms or complaints. [] Review of Systems Review of Systems Review of symptoms as per history of present illness. All other review symptoms are negative. All other systems were reviewed and found to be within normal limits, except as documented in this note. Allergies Allergies Allergies Coded Allergies Type Severity Reaction Last Updated Verified chlorpromazine Allergy Severe SEIZURE 03/19/16 Yes prochlorperazine Allergy Severe Unknown 03/19/16 Yes promethazine Allergy Severe Unknown 03/19/16 Yes Physical Exam Physical Exam Constitutional: Well developed, well nourished, no acute distress, non-toxic appearance. [] HENT: Normocephalic, atraumatic, bilateral external ears normal, oropharynx moist, nose normal. [] Eyes: PERRLA, EOMI, conjunctiva normal. [] Neck: Normal range of motion, no tenderness. [] Cardiovascular:Heart rate regular rhythm, no murmur [] Lungs & Thorax: Bilateral breath sounds clear to auscultation [] Abdomen: Bowel sounds normal, soft, no tenderness. [] Skin: Warm, dry, no erythema, no rash. [] Back:R CVA tenderness. [] Extremities: No tenderness, no cyanosis, no clubbing, ROM intact, no edema. [] Neurologic: Alert and oriented X 3, normal motor function, normal sensory function, no focal deficits noted. [] Psychologic: Affect normal, judgement normal, mood normal. [] Current Patient Data Vital Signs Vital Signs Date Time Temp Pulse Resp B/P (MAP) Pulse Ox O2 Delivery O2 Flow Rate FiO2 01/17/19 22:19 82 124/80 (95) 98 Room Air 01/17/19 20:15 98.2 16 98.2 EKG EKG [] Radiology/Procedures Radiology/Procedures [CVUS RLE: no DVT per radiology report] Course & Med Decision Making Course & Med Decision Making Pertinent Labs and Imaging studies reviewed. (See chart for details) [No DVT. ] Dragon Disclaimer Dragon Disclaimer This electronic medical record was generated, in whole or in part, using a voice recognition dictation system. Departure Departure Impression: Primary Impression: Swelling of right lower extremity Disposition: HOME, SELF-CARE Condition: GOOD Patient Instructions: Edema, [id number] Additional Instructions: You were evaluated in the emergency department for right leg swelling. A vascular ultrasound was performed and does not show evidence of venous thrombosis. Keep elevated at rest and continue anti-inflammatory. Follow-up with your PCP in one week for reevaluation. TAI MACARIO DO Jan 17, 2019 23:03
== END 2019-01-17 22:20 | disposition home or self-care (01) ==
LOC: ER 20:04
DX: R22.41 Localized swelling, mass and lump, right lower limb (principal); R10.9 Unspecified abdominal pain; R50.9 Fever, unspecified; R11.0 Nausea; I10 Essential (primary) hypertension; Z90.49 Acquired absence of other specified parts of digestive tract; Z88.8 Allergy status to other drugs, medicaments and biological substances
CPT/HCPCS: 93971; 99284-25

== ENCOUNTER 2019-03-10 04:59 | Emergency (ER) | payer BC ==
[~2019-03-10] VITALS: Ht 160 cm; Wt 81.6 kg
[2019-03-10 05:10] VITALS: BP 137/83
[2019-03-10] MEDS: IPRATRPIUM/ALBUTEROL 0.5/2.5MG 3 ML NEBU. NEB ONE (06:31)
[2019-03-10] MEDS: HYDROcodone/APAP 5/325MG 1 TAB TABLET PO ONE (06:36)
[2019-03-10 06:40] LABS: INFLUENZA A PATIENT POSITIVE (NEGATIVE); INFLUENZA B PATIENT NEGATIVE (NEGATIVE)
[2019-03-10] MEDS ORDERED: AZIT250T PO (06:47)
[2019-03-10] MEDS ORDERED: HYDR-3164 PO (06:47)
[2019-03-10] MEDS ORDERED: BENZ100C PO (06:47)
--- NOTE | 2019-03-10 06:48 | PHYS DOC ---
Past Medical History Past Medical History: Hypertension Additional Past Medical Histor: SKIN CA Past Surgical History: Cholecystectomy Additional Past Surgical Histo: Metal pins in jaw & rods L forearm, skin CA surgery 2016, RIGHT FOOT Alcohol Use: Rarely Drug Use: None Adult General Chief Complaint Chief Complaint: COUGH HPI HPI Patient is a 48 year old female with history of hypertension who presents with complaining of cough and congestion. Patient complaining of nonproductive cough, nasal congestion, sore throat, headache, shortness of breath, myalgia, fever up to 102 for the last 4 days that is not getting better with [id number] medication. Patient states she was not able to sleep for the last 3 nights because of the cough. Patient had sick contacts at home. Patient denies chest pain, vomiting, diarrhea, headache. Review of Systems Review of Systems Constitutional: Reports fever and chills Eyes: Denies change in visual acuity, redness, or eye pain [] HENT: Reports nasal congestion and sore throat Respiratory: Reports cough and shortness of breath Cardiovascular: No additional information not addressed in HPI [] GI: Denies abdominal pain, nausea, vomiting, bloody stools or diarrhea [] : Denies dysuria or hematuria [] Musculoskeletal: Denies back pain or joint pain [] Integument: Denies rash or skin lesions [] Neurologic: Denies headache, focal weakness or sensory changes [] Endocrine: Denies polyuria or polydipsia [] All other systems were reviewed and found to be within normal limits, except as documented in this note. Current Medications Current Medications Current Medications Medications (Trade) Dose Ordered Sig/[place] Start Time Stop Time Status Last Admin Dose Admin Acetaminophen/ Hydrocodone Bitart (Lortab 5/325) 1 tab 1X ONCE 03/10/19 06:30 03/10/19 06:31 DC 03/10/19 06:36 1 TAB Albuterol/ Ipratropium (Duoneb) 3 ml 1X ONCE 03/10/19 06:30 03/10/19 06:31 DC 03/10/19 06:31 3 ML Allergies Allergies Allergies Coded Allergies Type Severity Reaction Last Updated Verified chlorpromazine Allergy Severe SEIZURE 03/19/16 Yes prochlorperazine Allergy Severe 03/10/19 Yes promethazine Allergy Severe 03/10/19 Yes Physical Exam Physical Exam Constitutional: Well developed, well nourished, moderate distress, non-toxic appearance. [] HENT: Normocephalic, atraumatic, bilateral external ears normal, oropharynx moist, pharyngeal erythema, no oral exudates, nose normal. [] Eyes: PERRLA, EOMI, conjunctiva normal, no discharge. [] Neck: Normal range of motion, no tenderness, supple, no stridor. [] Cardiovascular:Heart rate regular rhythm, no murmur [] Lungs & Thorax: Bilateral breath sounds clear to auscultation [] Abdomen: Bowel sounds normal, soft, no tenderness, no masses, no pulsatile masses. [] Skin: Warm, dry, no erythema, no rash. [] Back: No tenderness, no CVA tenderness. [] Extremities: No tenderness, no cyanosis, no clubbing, ROM intact, no edema. [] Neurologic: Alert and oriented X 3, normal motor function, normal sensory function, no focal deficits noted. [] Psychologic: Affect normal, judgement normal, mood normal. [] Current Patient Data Vital Signs Vital Signs Date Time Temp Pulse Resp B/P (MAP) Pulse Ox O2 Delivery O2 Flow Rate FiO2 03/10/19 06:36 22 03/10/19 06:33 96 Room Air 03/10/19 05:10 99.0 110 137/83 (101) 99.0 Lab Values Laboratory Tests Test 03/10/19 06:05 Influenza Type A Antigen Positive (NEGATIVE) Influenza Type B Antigen Negative (NEGATIVE) EKG EKG [] Radiology/Procedures Radiology/Procedures [] Course & Med Decision Making Course & Med Decision Making Pertinent Labs reviewed. (See chart for details) discharge: I've spoken with the patient and/or caregivers. I've explained the patient's condition, diagnosis and treatment plan based on information available to me at this time. I've answered the patient's and/or caregivers questions and addressed any concerns. The patient and/or caregivers have a good understanding the patient's diagnosis, condition and treatment plan as can be expected at this point. Vital signs have been stabilized. The patient's condition is stable for discharge from the emergency department. The patient will pursue further outpatient evaluation with her primary care provider or other designated consulting physician as outlined in the discharge instructions. Patient and/or caregivers are agreeable to this plan of care and follow-up instructions have been explained in detail. The patient and/or caregivers have received these instructions in written format and expressed understanding of these discharge instructions. The patient and her caregivers are aware that if any significant change in condition or worsening of symptoms should prompt him to immediately return to this of the closest emergency department. If an emergent department is not readily available I would encourage him to call 911. Sierra Disclaimer Sierra Disclaimer This electronic medical record was generated, in whole or in part, using a voice recognition dictation system. Departure Departure Impression: Primary Impression: Influenza A Disposition: HOME, SELF-CARE (at [id number]) Condition: IMPROVED Referrals: LAURENT PARRA MD (PCP) Patient Instructions: Cough, Adult, Fever, Adult, Influenza A (H1N1) Additional Instructions: Drink plenty of liquids Follow-up with your primary care physician in 3-5 days Return to ER if not getting better Thank you for visiting [facility]. We appreciate you trusting us with your care. If any additional problems come up don't hesitate to return to visit us. Please follow up with your primary care provider so they can plan additional care if needed and know about the problem that you had. If symptoms worsen come back to the Emergency Department. Any concerning symptoms that start such as chest pain, shortness of air, weakness or numbness on one side of the body, running high fevers or any other concerning symptoms return to the ER. Scripts Azithromycin (ZITHROMAX) 250 Mg Tablet 250 MG PO as directed for ANTI-BIOTIC, #6 TAB 0 Refills Take 2 PO x 1 days Then take 1 PO q 24 hour for the next 4 days Prov: CLIFFORD VELIZ MD 03/10/19 Benzonatate (TESSALON PERLE) 100 Mg Capsule 1 CAP PO TID for cough, #21 CAP Prov: CLIFFORD VELIZ MD 03/10/19 Hydrocodone/Apap 5-325 (NORCO 5-325 TABLET) 1 Each Tablet 1 TAB PO PRN Q6HRS PRN for PAIN, #14 TAB 0 Refills Prov: CLIFFORD VELIZ MD 03/10/19 CLIFFORD VELIZ MD Mar 10, 2019 06:48
== END 2019-03-10 07:12 | disposition home or self-care (01) ==
LOC: ER 04:59
DX: J10.1 Influenza due to other identified influenza virus with other respiratory manifestations (principal); R50.9 Fever, unspecified; R06.02 Shortness of breath; M79.10 Myalgia, unspecified site; R09.81 Nasal congestion; I10 Essential (primary) hypertension; Z98.890 Other specified postprocedural states; Z90.49 Acquired absence of other specified parts of digestive tract; Z88.4 Allergy status to anesthetic agent; Z88.8 Allergy status to other drugs, medicaments and biological substances; Z85.828 Personal history of other malignant neoplasm of skin
CPT/HCPCS: 87804; 94640; 99284; J7620

== ENCOUNTER 2019-11-15 16:48 | Emergency (ER) | payer BC ==
[~2019-11-15] VITALS: Ht 161.3 cm; Wt 81.8 kg
[~2019-11-15 16:48] MED LIST changes: +AZIT250T PO; +BENZ100C PO
[2019-11-15 17:15] VITALS: BP 142/80
[2019-11-15] MEDS ORDERED: HYDROcodone/APAP 5/325MG 1 TAB TABLET PO ONE (18:15)
--- NOTE | 2019-11-15 18:41 | RAD ---
EXAM: Right foot 3 views. HISTORY: Right foot pain, felt a pop. COMPARISON: None. FINDINGS: Three views of the right foot are obtained. No fractures are identified. Alignment is normal. Joint spaces are maintained. There are moderate plantar and small posterior calcaneal spurs. IMPRESSION: 1. No fracture. Electronically signed by: Wale Encarnaicon MD (11/15/2019 6:38 PM) [facility]
--- NOTE | 2019-11-15 18:59 | PHYS DOC ---
Past Medical History Past Medical History: Hypertension Additional Past Medical Histor: SKIN CA (CRISTY GIL APRN) Past Surgical History: Cholecystectomy, Hysterectomy Additional Past Surgical Histo: Metal pins in jaw & rods L forearm, skin CA surgery 2016, RIGHT FOOT (CRISTY GIL APRN) Smoking Status: Current Every Day Smoker Additional Information: 1 ppd Alcohol Use: Rarely Drug Use: None (CRISTY GIL APRN) General Adult EDM: Chief Complaint: ANKLE PROBLEM HPI: HPI: Patient is a 49 year old female, accompanied by her significant other, who presents to the emergency department with complaints of right foot pain. Patient states yesterday she was shopping all day when she felt something pull and pop in her right foot as she was reaching for an item. She denies any rolling or twisting of her right ankle. She denies any ankle pain. The patient reports that she has had previous surgery on the same foot and ankle and was concerned that something may have happened to her previous surgical site. She denies any bruising, edema, or inability to bear weight. She reports increased pain with weightbearing. Patient states she is tried taking ibuprofen yesterday with no relief of her pain and tried taking Tylenol today with no relief in her pain. She currently rates her pain a 9 out of 10 on the pain scale, she denies any alleviating factors the pain is worse with palpation and weightbearing. (CRISTY GIL APRN) Review of Systems: Review of Systems: Constitutional: Denies fever or chills. [] Musculoskeletal: See HPI Integument: Denies bruising or abrasions Neurologic: Denies focal weakness or sensory changes. [] Complete ROS is negative unless otherwise stated in the HPI. (CRISTY GIL LIAISON PLANNER) Heart Score: Risk Factors: Risk Factors: DM, Current or recent (<one month) smoker, HTN, HLP, family history of CAD, obesity. Risk Scores: Score 0 - 3: 2.5% MACE over next 6 weeks - Discharge Home Score 4 - 6: 20.3% MACE over next 6 weeks - Admit for Clinical Observation Score 7 - 10: 72.7% MACE over next 6 weeks - Early Invasive Strategies (CRISTY GIL APRN) Current Medications: Current Medications Medications (Trade) Dose Ordered Sig/[place] Start Time Stop Time Status Last Admin Dose Admin Acetaminophen/ Hydrocodone Bitart (Lortab 5/325) 1 tab 1X ONCE 11/15/19 18:15 11/15/19 18:16 DC 11/15/19 18:41 1 TAB (CRISTY GIL APRN) Allergies: Allergies: Allergies Coded Allergies Type Severity Reaction Last Updated Verified chlorpromazine Allergy Severe SEIZURE 11/15/19 Yes prochlorperazine Allergy Severe 11/15/19 Yes promethazine Allergy Severe 11/15/19 Yes (CRISTY GIL APRN) Physical Exam: PE: Constitutional: Well developed, well nourished, no acute distress, non-toxic appearance, obese. [] HENT: Normocephalic, atraumatic, bilateral external ears normal, nose normal. [] Eyes: PERRLA, EOMI, conjunctiva normal, no discharge. [] Neck: Normal range of motion, no stridor. [] Cardiovascular:Heart rate regular rhythm Lungs & Thorax: Respirations even and unlabored, no retractions, no respiratory distress Skin: Warm, dry, no erythema, no rash. [] Extremities: Right foot: Proximal lateral tenderness to palpation without obvious deformity or crepitus, 1+ edema, PMS intact, no cyanosis Neurologic: Alert and oriented X 3, no focal deficits noted. [] Psychologic: Affect normal, judgement normal, mood normal. [] (CRISTY GIL APRN) Current Patient Data: Vital Signs: Vital Signs Date Time Temp Pulse Resp B/P (MAP) Pulse Ox O2 Delivery O2 Flow Rate FiO2 11/15/19 18:41 15 11/15/19 17:15 98.5 99 142/80 (100) 95 Room Air 98.5 (CRISTY GIL APRN) EKG: EKG: [] (CRISTY GIL APRN) Radiology/Procedures: Radiology/Procedures: PROCEDURE: FOOT RIGHT 3V EXAM: Right foot 3 views. HISTORY: Right foot pain, felt a pop. COMPARISON: None. FINDINGS: Three views of the right foot are obtained. No fractures are identified. Alignment is normal. Joint spaces are maintained. There are moderate plantar and small posterior calcaneal spurs. IMPRESSION: 1. No fracture. [] (CRISTY GIL APRN) Course & Med Decision Making: Course & Med Decision Making Pertinent Labs and Imaging studies reviewed. (See chart for details) [] (CRISTY GIL APRN) Sierra Disclaimer: Sierra Disclaimer: This electronic medical record was generated, in whole or in part, using a voice recognition dictation system. (CRISTY GIL APRN) Departure Departure Impression: Primary Impression: Foot pain, right Disposition: HOME, SELF-CARE Condition: STABLE Referrals: AMEYA PARRY DO (PCP) Patient Instructions: Foot Contusion Additional Instructions: You may take Tylenol or ibuprofen as needed for pain. Activity as tolerated, recommend application of ice as needed for comfort. Follow-up with your primary care doctor if symptoms persist, return to the ER symptoms worsen. Justicifation of Admission Dx: Justifications for Admission: Justification of Admission Dx: N/A (CRISTY GIL APRN) Attending Signature Attending Signature I have reviewed the PA/LEAD RIDER's note and plan of care. I was available for consultation as needed during the patient's visit in the emergency department. I agree with the clinical impression, plan, and disposition. (MARCEL PRO DO) CRISTY GIL APRN Nov 15, 2019 18:59 MARCEL PRO DO Nov 16, 2019 16:57
== END 2019-11-15 19:27 | disposition home or self-care (01) ==
LOC: ER 16:48
DX: M79.671 Pain in right foot (principal); R60.0 Localized edema; I10 Essential (primary) hypertension; F17.200 Nicotine dependence, unspecified, uncomplicated; Z90.49 Acquired absence of other specified parts of digestive tract; Z90.710 Acquired absence of both cervix and uterus; Z98.890 Other specified postprocedural states; Z88.8 Allergy status to other drugs, medicaments and biological substances
CPT/HCPCS: 73630; 99284